=== PATIENT | male | born 1955 | race Caucasian/White ===

== ENCOUNTER → 2017-09-30 | Day surgery (SDC) | payer BC ==
[2017-09-14 12:36] VITALS: Ht 175.3 cm; Wt 90.9 kg
[~2017-09-30] VITALS: Ht 175.3 cm; Wt 90.9 kg
[~2017-09-30] MED LIST: ACET-749 PO; ACETAMINOPHEN/CODEINE 300/30MG TAB PO PRN; ASPCH81X PO; ATOR-26 PO; ATROPINE SULFATE 0.1 MG/ML 5ML SYR IV PRN; B-COTAB18 PO; BACL10TA PO; BUPIVACAINE 0.5 % 5 MG/1 ML PF 10ML VIAL ONE; CARV6.252 PO; CEFAZOLIN 2000MG IV PUSH 10 ML IV SCH; COEN1CAP7 PO; EpHEDrine SULFATE INJ 50 MG/ML AMP IV PRN; FENTANYL CITRATE INJ 50 MCG/1 ML 2 ML VIAL IV PRN; FENTANYL CITRATE INJ 50 MCG/1 ML 2 ML VIAL ONE; LACTATED RINGER'S 1000ML 1,000 ML IV SCH; LIDOCAINE HCL 2% 2 ML VIAL (20MG/ML) ONE; LIDOCAINE HCL 2% LOCAL 20 ML VIAL ONE; LISI-725 PO; LORA-741 PO; MIDAZOLAM HCL 1 MG/ML 2ML VIAL ONE; NTRGSL/4 UT; ONDANSETRON INJ 2 MG/ML 2 ML VIAL IV PRN; ONDANSETRON INJ 2 MG/ML 2 ML VIAL ONE; PANT1TAB48 PO; PROPOFOL IV EMULSION 10 MG/ML 20 ML VIAL IV ONE; SODIUM CHLORIDE 0.9% 1000ML 1,000 ML IV SCH; TICA1TAB PO; TRAM-10 PO
--- NOTE | 2017-09-30 07:54 | History & Physical Bridge - [place] ---
H&P Re-Evaluation Bridge Note: I have examined the patient, reviewed the History & Physical and in the interval since the performance of the History & Physical I have noted the following changes of clinical significance: No changes noted
--- NOTE | 2017-09-30 08:27 | Discharge Instructions-SurgCtr ---
Discharge Instructions Date of Service Sep 30, 2017. Visit Reason for Visit: Left Carpal Tunnel Syndrome Discharge Discharge Diagnosis / Problem: left carpal tunnel syndrome Discharge Goals Goal(s): Decrease discomfort, Improve function, Therapeutic intervention Activity Recommendations Activity Limitations: per Instructions/Follow-up section Anesthesia . Post Anesthesia Instructions: If you have had General Anesthesia or IV Sedation: * Do not drive today. * Resume driving when surgeon permits. * Do not make important decisions or sign legal documents today. * Call surgeon for: 1. Temperature elevations greater than 101 degrees F. 2. Uncontrollable pain. 3. Excessive bleeding. 4. Persistent nausea and vomiting. 5. Medication intolerance (nausea, vomiting or rash). * For nausea and vomiting use only clear liquids such as: tea, soda, bouillon until nausea subsides, then gradually increase diet as tolerated. * If you have any concerns or questions, call your surgeon's office. If physician is unavailable and it is an emergency, call 911 or go to the nearest emergency room. . Instructions / Follow-Up Instructions / Follow-Up MEDICATIONS: * Resume previous medications unless instructed otherwise by your surgeon. * Always take pain medication on a full stomach or with food to avoid upset stomach. * Do not drink alcohol or drive while taking narcotics. * Ibuprofen or Tylenol may be taken if narcotic not needed. SPECIAL CARE INSTRUCTIONS: __ None __ Keep extremity elevated and iced x 48 hours; apply ice 20-30 minutes 8-10 times/day. May remove at night. __ Sling __24 hrs/day __ Remove at night __ Shoulder Immobilizer __ 24 hrs/day __ Remove at night _x_ Dressing _x_ Maintain until seen in office, may shower with plastic over site __ Remove dressings in 24-48 hours and then may shower __ Cover incisions with band-aids after showering __ Do not remove steri-strips Call physician if chills or temperature rises above 102 degrees or pain unrelieved by prescribed pain medications at . follow up in 2 weeks . Diet Recommendations Home Diet: resume previous diet Procedures Procedures Performed: Left Carpal Tunnel Release Pending Studies Studies pending at discharge: no Medical Emergencies . Who to Call and When: Medical Emergencies: If at any time you feel your situation is an emergency, please call 911 immediately. . Non-Emergent Contact Non-Emergency issues call your: Surgeon . . "Provider Documentation" section prepared by Evan Lovell. .
[2017-09-30 08:28] VITALS: TEMP 36.6
--- NOTE | 2017-09-30 08:28 | [facility] Post Operative Brief Note ---
Immediate Operative Summary Operative Date Sep 30, 2017. Pre-Operative Diagnosis Left Carpal Tunnel Syndrome Post-Operative Diagnosis Same Procedure(s) Performed Left Carpal Tunnel Release Surgeon Dr Tobar Surgery Specialist Surgeon(s) Hernan Lovell PA-C Estimated Blood Loss Minimal Findings Left Carpal Tunnel Syndrome Specimens None Anesthesia Local with IV Sedation Complication(s) None Disposition Recovery Room / PACU
--- NOTE | 2017-09-30 08:45 | OPERATIVE REPORT ---
DATE OF OPERATION: 09/30/2017 SURGEON: Dr. Parmjit Tobar. MARKETING SALES MANAGER: [employer] PREOPERATIVE DIAGNOSES: 1. Left carpal tunnel syndrome. 2. Status post right carpal tunnel release. POSTOPERATIVE DIAGNOSES: Same. PROCEDURE PERFORMED: 1. Left carpal tunnel release. 2. Suture removal from right hand. TOURNIQUET TIME: 6 minutes. ANESTHESIA: Local with IV sedation. OPERATIVE INDICATIONS: The patient is a 61-year-old gentleman who has had a fairly long history of bilateral hand pain, discomfort and numbness and classic carpal tunnel symptoms. He had failed conservative care. Nerve studies confirmed moderate carpal tunnel syndrome in both hands. He underwent a right carpal tunnel release 2 weeks ago and has done well from this with a good resolution of symptoms. He elected to proceed with left carpal tunnel release. OPERATIVE PROCEDURE: The patient was taken to the operating room, identified and placed on the operating table in supine position. All contact areas were appropriately padded. IV antibiotics were provided by anesthesia team. A left forearm tourniquet was placed. The right hand was cleaned with alcohol and the sutures were removed from the right hand. The left hand was then cleaned with alcohol. Ten mL of a 50:50 combination of 0.5% Marcaine and 2% lidocaine were then injected in and around the proposed incision site. The left hand was then prepped and draped in the usual sterile fashion. The left arm was elevated and exsanguinated with an Esmarch and tourniquet was placed at 250 mmHg. A 2.5-3 cm incision was made in the palm just ulnar to the palmaris longus tendon. Blunt dissection was carried out through the subcutaneous tissues down to the level of the palmar fascia. The palmar fascia was incised longitudinally in line with the skin incision. The underlying transverse carpal ligament was identified. It was transected distally with use of a [place] blade knife and then bluntly spread. Attention was then drawn proximally. Blunt dissection was carried out above and below the ligament proximally. The ligament was then transected for a minimum distance of 3 cm proximal to the wrist flexion crease. The ligament was bluntly spread and found to be completely released. The wound was irrigated. The tourniquet was let down for a tourniquet time of 6 minutes. Hemostasis was assured with use of electrocautery. The wound was once again irrigated and the skin was then closed with 5-0 nylon suture in a horizontal mattress fashion. The hand was then cleaned and dried and a sterile dressing of Xeroform, 4 x 4's, sterile cast padding and Vikash bandage were applied. The patient was then transferred to the recovery room in stable condition. The patient tolerated the procedure without complications. All needle and sponge counts were correct at the end of the operation. I attest to the content of the Intraoperative Record and any orders documented therein. Any exception s are noted below.
[2017-09-30 08:59] VITALS: BP 109/73; PULSE 62; O2SAT 96
--- NOTE | 2017-09-30 09:04 | Anesthesia Progress Nt - [facility] ---
Anesthesia Post Op Note Date & Time Sep 30, 2017 at 09:04 Vital Signs Pain Intensity: 0 Vital Signs Past 12 Hours Date Time Temp Pulse Resp B/P (MAP) Pulse Ox O2 Delivery O2 Flow Rate FiO2 09/30/17 08:59 62 16 109/73 (85) 96 Room Air 09/30/17 08:28 36.6 70 16 96/61 (73) 95 Room Air 09/30/17 07:13 36.7 69 16 150/83 (105) 96 Room Air Notes Mental Status: alert / awake / arousable, participated in evaluation Pt Amnestic to Procedure: Yes Nausea / Vomiting: adequately controlled Pain: adequately controlled Airway Patency, RR, SpO2: stable & adequate BP & HR: stable & adequate Hydration State: stable & adequate Anesthetic Complications: no major complications apparent
== END | disposition home or self-care (01) ==
LOC: X.SURG 06:54
PROVIDERS: ATTEND Orthopaedic Surgery Sports Medicine
DX: G56.02 Carpal tunnel syndrome, left upper limb (principal); Z48.02 Encounter for removal of sutures; I25.10 Atherosclerotic heart disease of native coronary artery without angina pectoris; I25.2 Old myocardial infarction; Z87.891 Personal history of nicotine dependence; M19.90 Unspecified osteoarthritis, unspecified site